=== PATIENT | male | born 1945 | race Caucasian/White ===

== ENCOUNTER 2019-08-31 10:34 | Outpatient (CLI) | payer MEDICARE, BC, SELFPAY ==
[2019-08-31 11:34] LABS: Add Urine Microscopic? YES; Appearance Urine Clear (Clear); Bilirubin Urine Negative (Negative); Blood Urine 1+ (Negative); Color Urine Yellow (Yellow); Glucose Urine UA Negative (Negative); Ketones Urine Negative (Negative); Leukocyte Esterase Ur Negative LEU/UL (Negative); Mucus Urine Few /lpf; Nitrate Urine Negative (Negative); Protein Urine 1+ mg/dL (Negative); Specific Grav Ur 1.015 (1.001-1.035); Squamous Epithelial Cell Urine Occasional /hpf (Few); Urobilinogen Urine Negative mg/dL (<2.0); WBC Urine 0-3 /hpf
== END 2019-08-31 10:35 | disposition home or self-care (01) ==
PROVIDERS: PCP Family Medicine; Visit Provider Nurse Practitioner Family
DX: R31.9 Hematuria, unspecified (principal)
CPT/HCPCS: 81001

== ENCOUNTER 2019-10-06 10:39 | Outpatient (CLI) | payer MEDICARE, BC, SELFPAY ==
--- NOTE | ~2019-10-06 | XR_ITS ---
EXAMINATION: XR abdomen/kub 1V EXAM DATE: 10/06/2019 11:11 INDICATION: Microscopic hematuria. TECHNIQUE: Frontal projection of the upper abdomen, frontal projection lower abdomen/pelvis for inter pretation. Correlation is made to CT urogram same date. FINDINGS: There is expected amount of colonic stool and gas. No small bowel dilation, nonobstructiv e bowel gas pattern. Probable identification of a few of the small stone seen on CT scan. Moderate b shawna degenerative changes. There is no organomegaly suspected. IMPRESSION: Bilateral nephrolithiasis. Reviewed, dictated and finalized at location B. IMPRESSION: Bilateral nephrolithiasis.
--- NOTE | ~2019-10-06 | CT_ITS ---
EXAMINATION: CT abdomen pelvis wo/w con EXAM DATE: 10/06/2019 12:50 INDICATION: Microscopic hematuria. TECHNIQUE: Spiral CT of the abdomen and pelvis was performed without contrast. The patient was then injected with small bolus intravenous Omnipaque 350, followed by delay of approximately 10 minutes to allow collecting system to opacify. A post contrast scan abdomen and pelvis was performed during inj ection of remaining contrast. A total of 130 cc intravenous contrast was administered. The dose-lalo th product (DLP) for this examination was 2449.91 mGy-cm. The exposure was tailored according to pat ient size (auto mA exposure control), and iterative reconstruction (ASIR) was used as additional dose reduction technique. There is no prior study for comparison. FINDINGS: There are multiple small bilateral calyceal stones up to 5 mm in size. No ureteral stones o r hydronephrosis. Small left inguinal fat-containing hernia. There are multiple bilateral cysts and hemorrhagic cysts, largest on the right measuring 8 cm and on the left measuring 7 cm. The kidneys e nhance symmetrically. There are no suspicious renal lesions. The calyces and opacified portions of ureters are unremarkable, without filling defects or focal suspicious strictures. The bladder is unr emarkable. The prostate is unremarkable. The liver, spleen, adrenal glands and pancreas are unremarkable. Gallbladder is unremarkable. No bi liary obstruction. There is no retroperitoneal or pelvic lymphadenopathy. There is moderate scatte red arteriosclerotic disease. There is small umbilical fat-containing hernia. The appendix is normal. The stomach and small bowel are unremarkable. There is moderate sigmoid pred ominant colonic diverticulosis. There is no adjacent inflammatory change to suggest diverticulitis. No free intraperitoneal gas. The heart is normal in size. There are no pericardial or pleural eff usions. The lung bases are unremarkable. There are no osteoblastic or osteolytic lesions identified . IMPRESSION: 1. Bilateral nephrolithiasis. Renal cysts. 2. Moderate colonic diverticulosis. Reviewed, dictated and finalized at location B.
[2019-10-06 12:20] LABS: Estimated Glomerular Filt Rate > 60
== END 2019-10-06 10:40 | disposition home or self-care (01) ==
LOC: ANHIMG 10:47
PROVIDERS: PCP Family Medicine; Visit Provider Urology
DX: N20.0 Calculus of kidney (principal); K57.30 Diverticulosis of large intestine without perforation or abscess without bleeding; N28.1 Cyst of kidney, acquired
CPT/HCPCS: 36415; 74018; 74178; Q9967

== ENCOUNTER 2019-10-13 14:34 | Outpatient (CLI) | payer MEDICARE, BC, SELFPAY ==
[2019-10-13 10:53] LABS: Basophils Absolute Auto 0.1 K/mm3 (0.0-0.1); Basophils Percent Auto 0.6 % (0.2-1.2); Eosinophils Absolute Auto 0.1 K/mm3 (0-0.3); Hematocrit 53.5 % (42.0-52.0); Hemoglobin 18.4 g/dL (14.0-18.0); Immature Granulocyte Absolute 0.09 K/mm3 (0.00-0.031); Immature Granulocyte Percent A 0.8 % (0-0.5); Lymphocytes Absolute Auto 1.78 K/mm3 (0.9-3.2); Lymphocytes Percent Auto 15.1 % (18.3-44.2); Mean Corpuscular HGB Conc 34.4 g/dl (32-36); Mean Corpuscular Volume 90.2 fl (80-100); Mean Platelet Volume 9.9 fl (7.4-10.4); Monocytes Absolute Auto 0.8 K/mm3 (0.1-0.6); Monocytes Percent Auto 6.7 % (2.6-8.5); Neutrophils Absolute Auto 8.9 K/mm3 (1.3-6.7); Neutrophils Percent Auto 75.8 % (45.5-73.1); Platelet Count Result 195 k/mm3 (150-375); Red Blood Count 5.93 M/mm3 (4.6-6.20); Red Cell Distribution Width 12.8 % (11.5-14.5); White Blood Count 11.8 K/mm3 (4.5-10.0)
[2019-10-13 11:04] LABS: Blood Urea Nitrogen 17 mg/dL (9-20); Calcium 9.1 mg/dL (8.4-10.2); Carbon Dioxide 31 mmol/L (22-30); Chloride 100 mmol/L (98-107); Estimated Glomerular Filt Rate 59; Glucose 105 mg/dL (75-110); INR 1.1; Potassium 3.8 mmol/L (3.4-5.0); Prothrombin Time 13.5 Seconds (11.1-14.7); Sodium 139 mmol/L (137-145)
[2019-10-13 11:05] LABS: Partial Thromboplastin Time 35.4 SECONDS (22.3-36.8)
== END 2019-10-13 14:35 | disposition home or self-care (01) ==
LOC: ANHSURGERY 12-24 14:35
PROVIDERS: PCP Family Medicine; Visit Provider Urology
DX: Z01.818 Encounter for other preprocedural examination (principal); N47.1 Phimosis
CPT/HCPCS: 36415; 80048; 85025; 85610; 85730; 87077; 87086; 87088

== ENCOUNTER 2020-07-31 13:30 | Outpatient (CLI) | payer MEDICARE, BC, SELFPAY ==
[2020-07-31 14:13] LABS: Basophils Absolute Auto 0.1 K/mm3 (0.0-0.1); Basophils Percent Auto 0.4 % (0.2-1.2); Eosinophils Percent Auto 0.1 % (0-4.4); Hematocrit 53.5 % (42.0-52.0); Hemoglobin 18.2 g/dL (14.0-18.0); Immature Granulocyte Absolute 0.24 K/mm3 (0.00-0.031); Immature Granulocyte Percent A 1.7 % (0-0.5); Lymphocytes Absolute Auto 1.24 K/mm3 (0.9-3.2); Lymphocytes Percent Auto 8.6 % (18.3-44.2); Mean Corpuscular Hemoglobin 30.7 pg (26-34); Mean Corpuscular Volume 90.2 fl (80-100); Monocytes Absolute Auto 0.3 K/mm3 (0.1-0.6); Monocytes Percent Auto 2.1 % (2.6-8.5); Neutrophils Absolute Auto 12.6 K/mm3 (1.3-6.7); Neutrophils Percent Auto 87.1 % (45.5-73.1); Platelet Count Result 233 k/mm3 (150-375); Red Blood Count 5.93 M/mm3 (4.6-6.20); Red Cell Distribution Width 13.2 % (11.5-14.5); White Blood Count 14.5 K/mm3 (4.5-10.0)
[2020-07-31 14:32] LABS: Alanine Aminotransferase 42 U/L (4-50); Albumin Level 3.9 g/dL (3.5-5.1); Alkaline Phosphatase 58 U/L (38-126); Anion Gap 4 mmol/L (8-16); Aspartate Amino Transferase 31 U/L (17-59); Blood Urea Nitrogen 26 mg/dL (9-20); Calcium 9.2 mg/dL (8.4-10.2); Carbon Dioxide 33 mmol/L (22-30); Chloride 96 mmol/L (98-107); Estimated Glomerular Filt Rate 59; Glucose 133 mg/dL (75-110); Potassium 4.1 mmol/L (3.4-5.0); Sodium 133 mmol/L (137-145)
[2020-07-31 14:36] LABS: Add Urine Microscopic? YES; Appearance Urine Clear (Clear); Bilirubin Urine Negative (Negative); Blood Urine 1+ (Negative); Color Urine Straw (Yellow); Glucose Urine UA Negative (Negative); Ketones Urine Negative (Negative); Leukocyte Esterase Ur Negative LEU/UL (Negative); Mucus Urine Rare /lpf; Nitrate Urine Negative (Negative); Protein Urine Negative (Negative); RBC Urine 0-2 /hpf (0-2); Specific Grav Ur 1.011 (1.001-1.035); Squamous Epithelial Cell Urine Rare /hpf (Few); Urobilinogen Urine Negative mg/dL (<2.0); WBC Urine 0-3 /hpf
[2020-07-31 14:48] LABS: Erythrocyte Sedimentation Rate 1 mm/hr (0-20)
== END 2020-07-31 13:31 | disposition home or self-care (01) ==
PROVIDERS: PCP Family Medicine; Visit Provider Family Medicine
DX: L50.1 Idiopathic urticaria (principal)
CPT/HCPCS: 36415; 80053; 81001; 85025; 85652

== ENCOUNTER 2020-11-06 09:11 | Outpatient (CLI) | payer MEDICARE, BC, SELFPAY ==
--- NOTE | 2020-11-06 | ECHO_ITS ---
Patient Info Name: Andrei Gurrola Age: 75 years : 1945 Gender: Male Ht: 71 in Wt: 235 lbs BSA: 2.34 m2 HR: 56 bpm BP: 145 / 91 mmHg Heart Rhythm: Atrial Fibrillation Technical Quality: Good Exam Date: 11/06/2020 10:42 AM Exam Location: [facility] Patient Status: Outpatient Admit Date: 11/06/2020 Staff Ordering Physician: PRECIOUS GAYLE [place] Opener: Melissa More RDCS Attending Provider: PRECIOUS GAYLE Exam Type: CA echo doppler color flow Study Info Indications - AFIB Complete two-dimensional, color flow and Doppler transthoracic echocardiogram is performed. Summary 1. Complete two-dimensional, color flow and Doppler transthoracic echocardiogram is performed. 2. Left ventricular enlargement with mild to moderate global systolic dysfunction ejection fraction 42%. 3. Biatrial enlargement. 4. Mild aortic sclerosis with no stenosis. 5. Atrial fibrillation. Left Ventricle Left ventricular chamber dimension is moderately enlarged. Left ventricular systolic function is mildly reduced, estimated at 40-45%. The left ventricular diastolic function is indeterminate. Right Ventricle Right ventricular chamber dimension is normal. Left Atria Left atrial chamber dimension is moderately enlarged. Right Atria Right atrial chamber dimension is moderately enlarged. Aortic Valve The aortic valve is trileaflet. There is mild aortic valve sclerosis. Pulmonic Valve The pulmonic valve is not well visualized. Mitral Valve The mitral valve has normal leaflets. There is trace mitral valve regurgitation. Tricuspid Valve The tricuspid valve leaflets are normal. Pericardium/Pleural The pericardium appears normal. Aorta The aortic root size at the sinus of Valsalva is normal. Left Ventricular Outflow Tract Name Value Normal LVOT 2D LVOT Diameter 2.1 cm LVOT Doppler LVOT Peak Gradient 4 mmHg LVOT Mean Gradient 2 mmHg LVOT VTI 21 cm LVOT VTI/AV VTI Ratio 0.9 LVOT Stroke Volume 74 ml LVOT CO 15.0 l/min LVOT CI 6.4 l/min/m2 Pulmonic Valve Name Value Normal PV Doppler PV Peak Gradient 1 mmHg Mitral Valve Name Value Normal MV Doppler MV Decel [place] 352 cm/s2 MV PHT 58 ms MV Area (PHT) 3.8 cm2 4.0-5.0 MV Diastolic Function
[2020-11-06 09:57] LABS: Basophils Absolute Auto 0.1 K/mm3 (0.0-0.1); Basophils Percent Auto 0.7 % (0.2-1.2); Eosinophils Absolute Auto 0.1 K/mm3 (0-0.3); Eosinophils Percent Auto 1.4 % (0-4.4); Hematocrit 47.9 % (42.0-52.0); Hemoglobin 16.5 g/dL (14.0-18.0); Immature Granulocyte Absolute 0.06 K/mm3 (0.00-0.031); Immature Granulocyte Percent A 0.7 % (0-0.5); Lymphocytes Absolute Auto 1.31 K/mm3 (0.9-3.2); Lymphocytes Percent Auto 14.2 % (18.3-44.2); Mean Corpuscular HGB Conc 34.4 g/dl (32-36); Mean Corpuscular Hemoglobin 31.7 pg (26-34); Mean Corpuscular Volume 91.9 fl (80-100); Mean Platelet Volume 9.6 fl (7.4-10.4); Monocytes Absolute Auto 0.6 K/mm3 (0.1-0.6); Monocytes Percent Auto 6.2 % (2.6-8.5); Neutrophils Absolute Auto 7.1 K/mm3 (1.3-6.7); Neutrophils Percent Auto 76.8 % (45.5-73.1); Platelet Count Result 184 k/mm3 (150-375); Red Blood Count 5.21 M/mm3 (4.6-6.20); Red Cell Distribution Width 12.8 % (11.5-14.5); White Blood Count 9.2 K/mm3 (4.5-10.0)
[2020-11-06 10:14] LABS: Potassium 3.9 mmol/L (3.4-5.0)
[2020-11-06 10:18] LABS: Anion Gap 3 mmol/L (8-16); Blood Urea Nitrogen 21 mg/dL (9-20); Calcium 8.8 mg/dL (8.4-10.2); Carbon Dioxide 33 mmol/L (22-30); Chloride 103 mmol/L (98-107); Estimated Glomerular Filt Rate > 60; Glucose 115 mg/dL (75-110); Sodium 139 mmol/L (137-145)
== END 2020-11-06 09:12 | disposition home or self-care (01) ==
PROVIDERS: PCP Family Medicine
DX: I48.0 Paroxysmal atrial fibrillation (principal); I48.91 Unspecified atrial fibrillation
CPT/HCPCS: 36415; 80048; 85025; 93306

== ENCOUNTER 2021-01-22 16:21 | Outpatient (CLI) | payer MEDICARE, BC, SELFPAY ==
[2021-01-22 17:19] LABS: Anion Gap 10 mmol/L (8-16); Blood Urea Nitrogen 20 mg/dL (9-20); Calcium 9.2 mg/dL (8.4-10.2); Carbon Dioxide 25 mmol/L (22-30); Chloride 103 mmol/L (98-107); Estimated Glomerular Filt Rate > 60; Glucose 94 mg/dL (75-110); Potassium 3.4 mmol/L (3.4-5.0); Sodium 138 mmol/L (137-145)
== END 2021-01-22 16:22 | disposition home or self-care (01) ==
PROVIDERS: PCP Family Medicine; Visit Provider Nurse Practitioner Adult Health
DX: I10 Essential (primary) hypertension (principal)
CPT/HCPCS: 36415; 80048

== ENCOUNTER 2021-05-01 11:27 | Outpatient (CLI) | payer MEDICARE, BC, SELFPAY ==
--- NOTE | ~2021-05-01 | XR_ITS ---
XR chest 2V DATE: 05/01/2021 11:46 INDICATION: Productive cough TECHNIQUE: PA and lateral views COMPARISON: 12/10/2018 2 view chest 09/29/[address] lung cancer screening FINDINGS: Normal heart size. No hilar or mediastinal enlargement. Again noted is a stable circumscribed nodular density in the peripheral anterolateral left midlung, p reviously diagnosed as benign hamartoma on CT examination. No pulmonary infiltrate or consolidation, pleural effusion or pulmonary vascular congestion or pneumo thorax. Degenerative spurring of the thoracic spine. 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
== END 2021-05-01 11:28 | disposition home or self-care (01) ==
LOC: ANHIMG 11:35
PROVIDERS: PCP Family Medicine; Visit Provider Family Medicine
DX: R05.9 Cough, unspecified (principal); Q85.9 Phakomatosis, unspecified
CPT/HCPCS: 71046

== ENCOUNTER 2022-10-04 17:11 | Outpatient (CLI) | payer MEDICARE, SELFPAY ==
[2022-10-04 17:34] LABS: Basophils Percent Auto 0.4 % (0.2-1.2); Eosinophils Absolute Auto 0.1 K/mm3 (0-0.3); Eosinophils Percent Auto 0.7 % (0-4.4); Hematocrit 52.3 % (42.0-52.0); Hemoglobin 17.8 g/dL (14.0-18.0); Immature Granulocyte Absolute 0.04 K/mm3 (0.00-0.031); Immature Granulocyte Percent A 0.4 % (0-0.5); Lymphocytes Absolute Auto 1.43 K/mm3 (0.9-3.2); Lymphocytes Percent Auto 14.9 % (18.3-44.2); Mean Corpuscular Hemoglobin 30.6 pg (26-34); Mean Corpuscular Volume 89.9 fl (80-100); Mean Platelet Volume 9.3 fl (7.4-10.4); Monocytes Absolute Auto 0.7 K/mm3 (0.1-0.6); Monocytes Percent Auto 7.6 % (2.6-8.5); Neutrophils Absolute Auto 7.3 K/mm3 (1.3-6.7); Platelet Count Result 175 k/mm3 (150-375); Red Blood Count 5.82 M/mm3 (4.6-6.20); Red Cell Distribution Width 13.4 % (11.5-14.5); White Blood Count 9.6 K/mm3 (4.5-10.0)
[2022-10-04 17:44] LABS: Hemoglobin A1C 5.6 % (<5.7)
[2022-10-04 17:48] LABS: Alanine Aminotransferase 37 U/L (6-50); Albumin Level 4.2 g/dL (3.5-5.1); Alkaline Phosphatase 75 U/L (38-126); Anion Gap 5 mmol/L (8-16); Aspartate Amino Transferase 32 U/L (17-59); Bilirubin,Total 1.2 mg/dL (0.2-1.3); Blood Urea Nitrogen 23 mg/dL (9-20); Calcium 9.2 mg/dL (8.4-10.2); Carbon Dioxide 31 mmol/L (22-30); Chloride 101 mmol/L (98-107); Cholesterol 133 mg/dL (0-200); Estimated Glomerular Filt Rate 58; Glucose 94 mg/dL (65-110); HDL Direct 33 mg/dL; Potassium 3.9 mmol/L (3.4-5.0); Sodium 137 mmol/L (137-145); Triglycerides 99 mg/dL (<150)
[2022-10-04 17:59] LABS: LDL Cholesterol Direct 77 mg/dL
[2022-10-08 23:02] LABS: Vitamin D 1,25 (OH)2 Total 28 pg/mL (18-72); Vitamin D2 1,25 (OH)2 <8 pg/mL; Vitamin D3 1,25 (OH)2 28 pg/mL
== END 2022-10-04 17:12 | disposition home or self-care (01) ==
PROVIDERS: PCP Family Medicine; Visit Provider Nurse Practitioner Gerontology
DX: E55.9 Vitamin D deficiency, unspecified (principal); R73.01 Impaired fasting glucose; E78.5 Hyperlipidemia, unspecified; I48.20 Chronic atrial fibrillation, unspecified; I50.30 Unspecified diastolic (congestive) heart failure
CPT/HCPCS: 36415; 80053; 80061; 82607; 82652; 83036; 84443; 85025

== ENCOUNTER 2025-01-03 07:04 | Outpatient (CLI) | payer MEDICARE, SELFPAY ==
--- OUTSIDE RECORDS SUMMARY | 2025-01-03 07:09 | XMS_ITS | Clinical Summary ---
Author Organization [facility] Address [address] [place] [address] Phone Care Team Providers Care Repair Coil Winder Name Role Phone Virginia Terrazas MD Primary Care Provider [phone] Allergies No known active allergies Medications atorvastatin (LIPITOR) 20 MG Tablet Take 20 mg by mouth daily. Active tamsulosin (FLOMAX) 0.4 MG Capsule Take 0.4 mg by mouth daily. Active Fluticasone-Ume clidin-Vilant (Trelegy Ellipta) 100-62.5-25 MCG/ACT AEROSOL POWDER, BREATH ACTIVATED take 1 Puff by inhalation daily. Active valsartan-hydro CHLOROthiazide (DIOVAN-HCT) 320-25 MG Tablet Take 1 Tablet by mouth daily. Active metoprolol Succinate (TOPROL-XL) 50 MG TABLET SR 24 HR Take 50 mg by mouth daily. Active Cholecalciferol (Vitamin D3) 50887 UNIT Capsule Take 1 Capsule by mouth once a week. Active rivaroxaban (Xarelto) 20 MG Tablet Take 20 mg by mouth daily (with dinner). Take with food. Active Family History Medical History Relation Name Comments No Known Problems Father Stroke Mother Relation Name Status Comments Father Mother Social History Tobacco Use Types Packs/Day Years Used Date Smoking Tobacco: Every Day Cigarettes Smokeless Tobacco: Never Tobacco Cessation:Ready to Q uit: No; Counseling Given: Yes Alcohol Use Standard Drinks/Week Comments Yes 0 (1 standard drink = 0.6 oz pur e alcohol) Rare Sex and Gender Information Value Date Recorded Sex Assigned at Not on file Legal Sex Male 1:06 PM CDT Gender Identity Not on file Sexual Orientation Not on file Last Filed Vital Signs Vital Sign Reading Time Taken Comments Blood Pressure 136/85 06/21/2024 9:38 AM DATA CONSULTANT Pulse 72 06/21/2024 8:18 AM DATA CONSULTANT Temperature 36.8 C (98.2 F) 06/21/2024 9:38 AM DATA CONSULTANT Respiratory Rate 16 06/21/2024 9:38 AM DATA CONSULTANT Oxygen Saturation 97% 06/21/2024 9:38 AM DATA CONSULTANT Inhaled Oxygen Concentration - - Weight 102.1 kg (225 lb) 06/09/2024 9:05 AM DATA CONSULTANT Height 180.3 cm (5' 11) 06/09/2024 9:05 AM DATA CONSULTANT Body Mass Index 31.38 06/09/2024 9:05 AM DATA CONSULTANT Plan of Treatment Not on file Medical Devices Implanted Type Area Fur Nailer Device Identifier Shelf Expiration Date Model / Serial / Lot Rayone Aspheric Us Implanted:Qty: 1 on 04/26/2024 by Jose Cottrell MD at [facility] Right: Eye 12/16/2025 [id number] / [id number] / [id number] Technis 1-Piece Iol With Simplicity Delivery System Implanted:Qty: 1 on 06/21/2024 by Aida Delaney MD PhD at [facility] Left: Eye 12/17/2025 [id number] / [id number] / [id number] Insurance MEDICARE [facility] Care Teams Repair Coil Winder Relationship Specialty Start Date End Date Virginia Terrazas MD [address] [facility] [address] [place] [address] PCP - General Family Medicine 04/26/24
--- OUTSIDE RECORDS SUMMARY | 2025-01-03 07:09 | XMS_ITS | Referral Summary ---
Author Organization [facility] [address] Address [address] [place] [address] Care Team Providers Care Headend Technician Name Role Phone Virginia Terrazas MD Primary Care Provider Allergies No known active allergies Medications tamsulosin (FLOMAX) 0.4 mg extended release capsule Take 1 capsule (0.4 mg total) by mouth daily 5 03/16/2019 Active ergocalciferol (VITAMIN D) 50,000 unit capsule Take 1 capsule (50,000 Units total) by mouth once a week Active fluticasone/ume clidin/vilanter (TRELEGY ELLIPTA INHAL) Inhale Activ e rivaroxaban (XARELTO) 20 mg tablet 1 tablet (20 mg total) Active valsartan-hydro chlorothiazide (DIOVAN-HCT) 320-25 mg per tablet Take 1 tablet by mouth daily 90 tablet 3 03/03/2023 Active atorvastatin (LIPITOR) 20 mg tablet TAKE 1 TABLET NIGHTLY 90 tablet 3 03/16/2024 Active metoprolol XL (TOPROL-XL) 50 mg extended release tablet Take 1 tablet (50 mg total) by mouth daily 15 tablet 09/17/2024 Active Active Problems Problem Noted Date Diagnosed Date Permanent atrial fibrillation 01/21/2024 residential current use of antiarrhythmic drug Assessment & Plan (11/03/2020 3:23 PM CDT): 12-lead ECG today does not demonstrate any changes that would prohibit continued use of sotalol. Following AV junction ablation, the patient can discontinue antiarrhythmic drug therapy. Anticoagulation management encounter 05/16/2020 Assessment & Plan (11/03/2020 3:23 PM CDT): The patient has a [id number] score of 3 (annualized risk of stroke 3%). I have therefore recommended that he remain anticoagulated for thromboprophylaxis. Assessment & Plan (05/16/2020 4:45 PM CDT): The patient has a [id number] score of 3 (annualized risk of stroke 3%). I have therefore recommended that he remain anticoagulated for thromboprophylaxis. Bradycardia 05/16/2020 Resolved Problems Problem Noted Date Diagnosed Date Resolved Date Paroxysmal atrial fibrillation 07/16/2017 01/21/2024 Assessment & Plan (11/03/2020 3:23 PM CDT): Highly symptomatic persistent atrial fibrillation. The patient also has a history of bradycardia, experienced previously when rate slowing medications were used. We discussed options for management. Previously, the patient was not in favor of pulmonary vein isolation, but was interested in pacemaker placement with AV junction ablation. We will obtain an echocardiogram. If his LV ejection fraction is normal, we would opt to place a MICRA leadless VVI pacemaker and proceed with AV junction ablation. If there is evidence of LV dysfunction, I would favor a biventricular pacing device in order to avoid further deterioration in his LV function. I explained the risks and benefits to the patient, including (but not limited to) the specific risks pertaining to conventional device placement (infection, hemorrhage, pneumothorax, perforation) and those pertaining to transfemoral pacing (hematoma, vascular injury, perforation, device dislodgement). The patient would like to proceed, and we will make the appropriate arrangements. Assessment & Plan (05/16/2020 4:45 PM CDT): The patient has highly symptomatic paroxysmal atrial fibrillation that has been refractory to antiarrhythmic drug therapy. In addition to the symptoms related to his atrial fibrillation, the patient describes what sounds like post-conversion pauses. We discussed options for management of his bradycardia-tachycardia syndrome, and he would like to undergo placement of a pacemaker with AV junction ablation. I described the risks and benefits of this approach. We also discussed catheter ablation for atrial fibrillation (pulmonary vein isolation), which the patient is not necessarily in favor of at this time. Because of his history of diastolic heart failure in conjunction with the fact that he will be I will plan on placing an LV pacing lead at the time. The patient will consider this option. If he wishes to proceed, my office will make the appropriate arrangements. 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 Gender Identity Not on file Sexual Orientation Not on file Last Filed Vital Signs Vital Sign Reading Time Taken Comments Blood Pressure 132/86 07/29/2024 3:23 PM INDUSTRIAL TRUCK OPERATOR Pulse 82 07/29/2024 3:23 PM INDUSTRIAL TRUCK OPERATOR Temperature 37.1 C (98.8 F) 11/27/2022 4:53 PM CDT Respiratory Rate 20 11/27/2022 4:53 PM CDT Oxygen Saturation 97% 07/29/2024 3:23 PM INDUSTRIAL TRUCK OPERATOR Inhaled Oxygen Concentration - - Weight 102.5 kg (226 lb) 07/29/2024 3:23 PM INDUSTRIAL TRUCK OPERATOR Height 180.3 cm (5' 11) 07/29/2024 3:23 PM INDUSTRIAL TRUCK OPERATOR Body Mass Index 31.52 07/29/2024 3:23 PM INDUSTRIAL TRUCK OPERATOR Plan of Treatment Not on file Insurance MEDICARE MEDICARE [facility] MEDICARE SUPPLEMENT Care Teams Headend Technician Relationship Specialty Start Date End Date Virginia Terrazas MD [address] [facility] [address] [place] [address] PCP - General Family Medicine 09/24/18
--- OUTSIDE RECORDS SUMMARY | 2025-01-03 07:09 | XMS_ITS | Clinical Summary ---
Author Organization [facility] Address [address] [place] [address] Care Team Providers Care Rn Cardiac Cath Name Role Phone Unavailable Primary Care Provider Unavailabl e Source Comments [facility],non-owned Affiliates and Associated Physician Practices is amultiple site organization consisting of ambulatory clinics and hospital sitesin [place], [place], [place] and [place]. This disclosure is being madepursuant to the Care Everywhere program and may not contain all information available regarding this patient. Last updated 18.[facility] Social History Tobacco Use Types Packs/Day Years Used Date Smoking Tobacco: Never Assessed Sex and Gender Information Value Date Recorded Sex Assigned at Not on file Legal Sex Male 4:29 PM BRICK WHEELER Gender Identity Not on file Sexual Orientation Not on file Plan of Treatment Health Maintenance Due Date Last Done Comments DTAP/TDAP/TD VACCINES (1 - Tdap) 1962 PNEUMOCOCCAL VACCINE 50+ (1 of 1 - PCV) 1993 ZOSTER VACCINE (1 of 2) 1993 Respiratory Syncytial Virus (RSV) Vaccine Pt: or over 60 yrs (1 - 1-dose 75+ series) 2018 COVID-19 VACCINE ( - 2023-2 5 season) 2024 DEPRESSION SCREENING 07/28/2024 INFLUENZA VACCINE (Season Ended) 2025 HEPATITIS B VACCINE Aged Out No longe r eligible based on patient's age to complete this topic HIB VACCINE Aged Out No longer eligi ble based on patient's age to complete this topic HPV VACCINE Aged Out No longer eligi ble based on patient's age to complete this topic MENINGOCOCCAL (Group B) VACC INE SHARED DECISION-MAKING Aged Out No longer eligibl e based on patient's age to complete this topic MENINGOCOCCAL GROUPS A/C/Y/W VACCINE Aged Out No longer eligible b ased on patient's age to complete this topic Insurance [facility] MEDICARE
--- OUTSIDE RECORDS SUMMARY | 2025-01-03 07:09 | XMS_ITS | Encounter Summary ---
Author Organization [facility] Address [address] [place] [address] Care Team Providers Care Leather Polisher Name Role Phone Esequiel Orellana MD Primary Care Provider [phone] Virginia Terrazas MD Primary Care Provider Encounter Details Date Type Department Care Team (Late st Contact Info) Description 12/06/2016 Orders Only [facility] ProviderCori MD [address] [place], [place] [id number] Social History Tobacco Use Types Packs/Day Years Used Date Smoking Tobacco: Every Day Comments:Smoking History Pac ks/day: 0.5 Packs Alcohol Use Standard Drinks/Week Comments Yes 0 (1 standard drink = 0.6 oz pur e alcohol) Sex and Gender Information Value Date Recorded Sex Assigned at Not on file 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 Historical Provider [facility] Final Result documented in this encounter Visit Diagnoses Not on filedocumented in this encounter Care Teams Leather Polisher Relationship Specialty Start Date End Date Esequiel Orellana MD PCP - General 10/31/16 09/23/18 Virginia Terrazas MD [address] [facility] [address] [place] [address] PCP - General Family Medicine 09/24/18 documented as of this encounter
--- OUTSIDE RECORDS SUMMARY | 2025-01-03 07:09 | XMS_ITS | Clinical Summary ---
Author Organization [facility] [address] Address [address] [place] [address] Care Team Providers Care Dial Maker Name Role Phone Virginia Terrazas MD Primary [...] Date Diagnosed Date Permanent atrial fibrillation 01/21/2024 custodial current use of antiarrhythmic drug Assessment & Plan (11/03/2020 3:23 PM CDT): 12-lead ECG today does not demonstrate any changes that would prohibit continued use of sotalol. Following AV junction ablation, the patient can discontinue antiarrhythmic drug therapy. Anticoagulation management encounter 05/16/2020 Assessment & Plan (11/03/2020 3:23 PM CDT): The patient has a [id number] score of 3 (annualized risk of stroke 3%). I have therefore recommended that he remain anticoagulated for thromboprophylaxis. Assessment & Plan (05/16/2020 4:45 PM CDT): The patient has a [id number]-VAVu score of 3 (annualized risk of stroke [...] my office will make the appropriate arrangements. 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 Gender Identity Not on file Sexual Orientation Not on file Obstetrics History Last Filed Vital Signs Vital Sign Reading Time Taken Comments Blood Pressure 132/86 07/29/2024 3:23 PM CAR RESTORER Pulse 82 07/29/2024 3:23 PM CAR RESTORER Temperature 37.1 C (98.8 F) 11/27/2022 4:53 PM CDT Respiratory Rate 20 11/27/2022 4:53 PM CDT Oxygen Saturation 97% 07/29/2024 3:23 PM CAR RESTORER Inhaled Oxygen Concentration - - Weight 102.5 kg (226 lb) 07/29/2024 3:23 PM CAR RESTORER Height 180.3 cm (5' 11) 07/29/2024 3:23 PM CAR RESTORER Body Mass Index 31.52 07/29/2024 3:23 PM CAR RESTORER Plan of Treatment Health Maintenance Due Date Last Done Comments Depression Screening 1945 Fall Risk Assessment 1945 DTaP/Tdap/Td Vaccine (1 - Tdap) 1954 Hepatitis B Screening 1961 Pneumococcal vaccine 65+ (1 of 2 - PCV) 1962 Zoster Vaccine (1 of 2) 1993 Abdominal Aortic Aneurysm (AAA) Screen 2008 Well Visit 65+ 2008 Influenza Vaccine (Season Ended) 2025 Insurance MEDICARE MEDICARE [employer] MEDICARE SUPPLEMENT Care Teams Dial Maker Relationship Specialty Start Date End Date Virginia Terrazas MD [address] [facility] [address] [place] [address] 237- PCP - General Family Medicine 09/24/18
--- OUTSIDE RECORDS SUMMARY | 2025-01-03 07:10 | XMS_ITS | Encounter Summary ---
Author Organization [facility] Address [address] [place] [address] Care Team Providers Care Lei Maker Name Role Phone Unavailable Primary Care Provider Unavailroni e Encounter Details Date Type Department Care Team (Late st Contact Info) Description 08/19/2020 Lab Requisition [facility] [address] [place] [id number] Jamaal Couch MD [address] [place] [address] Social History Tobacco Use Types Packs/Day Years Used Date Smoking Tobacco: Never Assessed Sex and Gender Information Value Date Recorded Sex Assigned at Not on file Legal Sex Male 4:29 PM [employer] Gender Identity Not on file Sexual Orientation Not on file documented as of this encounter Plan of Treatment Not on file documented as of this encounter Procedures Procedure Name Priority Date/Time Associated Diagnosis Comments DERMATOPATHOLOGY Routine 2020 3:33 AM [employer] documented in this encounter Results * DERMATOPATHOLOGY (2020 3:33 AM [employer]) Case Report Dermatopathology Report Case: [id number] Authorizing Provider: Jamaal Couch MD Collected: 2020 03:33 AM Ordering Location: [facility] Received: 08/19/2020 12:45 PM Pathologist: Zora Pendleton MD Specimen: Skin, left forearm 4:55 PM [employer] DERMATOPATHOLOGY LABORATORY Final Diagnosis Specimen A. 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 Path#[id number] 1 4:55 PM [facility]ERMAT[facility]ATH[facility] Gross Description Specimen A: Received is one formalin filled container labeled with the patient's name and designated left forearm. The specimen consists of a shave biopsy measuring 10x5x1 mm. Jar 0. 1 4:55 PM [facility]ERMATOPATHOLOGY [facility] Microscopic Description Specimen A. SKIN, left forearm: There is focal mounding parakeratosis and spongiosis of the epidermis. Collections of neutrophils are present in the stratum corneum. In the dermis there is a mainly superficial perivascular lymphoid infiltrate. No eosinophils are seen. Grocott's methenamine silver (GMS) stain fails to highlight fungal elements in the available sections. COMMENT: These histological findings can be seen in an eczematous dermatitis and guttate psoriasis, which is favored. 4:55 PM [facility] DERMATOPATH[facility] Disclaimer An external and internal positive and negative controls are appropriate for the histochemical, immunohistochemical and immunofluorescence stain(s) in this case (if any), except where stated explicitly. The performance characteristics of the stain(s) cited in this report were developed and its performance characteristic determined by the Dermatopathology Laboratory at [facility], directed by Dr. Kylah Pendleton. These tests need not be, and therefore are not, approved by the [place] Food and Drug Administration. The tests are used for clinical purposes. Billing Codes Specimen Charges Stain Charges 95511 1 22053 1 1 4:55 PM [facility] Embedded Images 1 4:55 PM [facility]MAT[facility] Pathology/Cytolo gy TISSUE SPECIMEN FROM SKIN / Unknown 2020 3:33 AM [employer] 08/19/2020 12:45 PM [employer] us Jamaal Couch MD LAB - PATHOLOGY/CYTOLOGY ORDER DAVID Final Result DERMATOPATHOLOGY LABORATORY [facility] - Department of Dermatology [address], [address] [phone] documented in this encounter Visit Diagnoses Not on filedocumented in this encounter
[2025-01-03 07:52] LABS: Basophils Percent Auto 0.3 % (0.2-1.2); Eosinophils Percent Auto 0.5 % (0-4.4); Hematocrit 48.8 % (42.0-52.0); Hemoglobin 16.6 g/dL (14.0-18.0); Immature Granulocyte Absolute 0.17 K/mm3 (0.00-0.031); Immature Granulocyte Percent A 1.9 % (0-0.5); Lymphocytes Percent Auto 11.4 % (18.3-44.2); Mean Corpuscular Hemoglobin 30.4 pg (26-34); Mean Corpuscular Volume 89.4 fl (80-100); Mean Platelet Volume 9.7 fl (7.4-10.4); Monocytes Absolute Auto 0.6 K/mm3 (0.1-0.6); Monocytes Percent Auto 7.3 % (2.6-8.5); Neutrophils Absolute Auto 6.9 K/mm3 (1.3-6.7); Neutrophils Percent Auto 78.6 % (45.5-73.1); Platelet Count Result 171 k/mm3 (150-375); Red Blood Count 5.46 M/mm3 (4.6-6.20); Red Cell Distribution Width 13.3 % (11.5-14.5); White Blood Count 8.8 K/mm3 (4.5-10.0)
[2025-01-03 08:03] LABS: Alanine Aminotransferase 26 U/L (6-50); Albumin Level 3.8 g/dL (3.5-5.1); Alkaline Phosphatase 71 U/L (38-126); Anion Gap 9 mmol/L (4-12); Aspartate Amino Transferase 35 U/L (17-59); Bilirubin,Total 1.6 mg/dL (0.2-1.3); Blood Urea Nitrogen 21 mg/dL (9-20); Calcium 9.2 mg/dL (8.4-10.2); Carbon Dioxide 24 mmol/L (22-30); Chloride 103 mmol/L (98-107); Cholesterol 117 mg/dL (0-200); Estimated Glomerular Filt Rate > 60; Glucose 104 mg/dL (65-110); HDL Direct 34 mg/dL; Potassium 3.6 mmol/L (3.4-5.0); Sodium 136 mmol/L (137-145); Total Protein 6.7 g/dL (6.3-8.2); Triglycerides 67 mg/dL (<150)
[2025-01-03 09:05] LABS: Hemoglobin A1C 5.1 % (<5.7)
[2025-01-03 10:10] LABS: LDL Cholesterol Direct 60 mg/dL
== END 2025-01-03 07:05 | disposition home or self-care (01) ==
PROVIDERS: PCP Family Medicine
DX: I50.30 Unspecified diastolic (congestive) heart failure (principal); I70.0 Atherosclerosis of aorta; I25.10 Atherosclerotic heart disease of native coronary artery without angina pectoris; E78.2 Mixed hyperlipidemia; R73.01 Impaired fasting glucose; N40.1 Benign prostatic hyperplasia with lower urinary tract symptoms; R35.1 Nocturia
CPT/HCPCS: 36415; 80053; 80061; 83036; 84443; 85025